=== PATIENT | female | born 1940 | race Caucasian/White ===

== ENCOUNTER → 2025-01-03 | Outpatient (CLI) | payer MEDICARE ==
[2025-01-03 11:02] LABS: ALKALINE PHOSPHATASE 75 U/L (46-116); BUN 16 mg/dl (9-23); CHLORIDE 100 mmol/L (98-107); CHOLESTEROL 288 mg/dL (<200); FREE T4 2.02 ng/dl (0.89-1.76); LDL CHOLESTEROL 210 mg/dL (9-159); POTASSIUM 4.5 mmol/L (3.4-5.1); TOTAL PROTEIN 7.2 gm/dL (6.0-8.0); TRIGLYCERIDES 153 mg/dl (<150)
[2025-01-03 11:03] LABS: SGPT/ALT < 7 U/L (5-49)
== END | disposition home or self-care (01) ==
LOC: LAB 09:56
PROVIDERS: Student in an Organized Health Care Education/Training Program; ATTEND Family Medicine
DX: E06.3 Autoimmune thyroiditis (principal); E78.2 Mixed hyperlipidemia; R53.1 Weakness